=== PATIENT | male | born 1975 | race Caucasian/White ===

== ENCOUNTER 2024-06-25 12:38 | Emergency (ER) | payer BC ==
[~2024-06-25] VITALS: Ht 190.5 cm; Wt 108.9 kg
[2024-06-25] MEDS: IV NORMAL SALINE 1000 ML BAG IV ONE (13:17)
[2024-06-25] MEDS ORDERED: METOCLOPRAMIDE HCL 10 MG/2 ML VIAL ONE (13:22)
[2024-06-25] MEDS ORDERED: KETOROLAC TROMETHAMINE 30 MG INJ ONE (13:22)
[2024-06-25 13:38] LABS: BASOPHILS # (AUTO) 0.1 K/UL (0.0-0.2); BASOPHILS % (AUTO) 1.3 % (0.0-2.0); EOSINOPHILS % (AUTO) 0.5 % (0.0-7.0); HEMATOCRIT 43.7 % (36.7-47.1); HEMOGLOBIN 14.9 g/dL (12.5-16.3); LYMPHOCYTES # (AUTO) 1.1 K/uL (0.8-4.8); LYMPHOCYTES % (AUTO) 14.8 % (20.5-51.5); MEAN CORPUSCULAR HEMOGLOBIN 30.9 uug (23.8-33.4); MEAN CORPUSCULAR HGB CONC 34 g/dL (32.5-36.3); MEAN CORPUSCULAR VOLUME 90.6 fL (73.0-96.2); MONOCYTES # (AUTO) 0.7 K/uL (0.1-1.30); MONOCYTES % (AUTO) 9.8 % (0.0-11.0); NEUTROPHILS # (AUTO) 5.6 K/uL (1.8-8.9); NEUTROPHILS % (AUTO) 73.6 % (38.5-71.5); PLATELET COUNT (AUTO) 276 K/uL (152-348); RED BLOOD CELL COUNT(AUTO) 4.82 MIL/uL (4.06-5.63); RED CELL DISTRIBUTION WIDTH 14.2 % (12.1-16.2); WHITE BLOOD COUNT (AUTO) 7.6 K/uL (3.6-10.2)
[2024-06-25 13:42] LABS: CALCIUM 8.3 mg/dL (8.5-10.1); CREATININE 1.1 mg/dL (0.6-1.3); POTASSIUM 3.8 mmol/L (3.5-5.1)
[2024-06-25] MEDS: METOCLOPRAMIDE HCL 10 MG/2 ML VIAL IV ONE (13:56)
[2024-06-25] MEDS: KETOROLAC TROMETHAMINE 30 MG INJ IVP ONE (14:00)
[2024-06-25] MEDS ORDERED: MORPHINE SULFATE 4 MG/1 ML DISP.SYRIN IV ONE (14:30)
[2024-06-25] MEDS ORDERED: MORPHINE SULFATE 4 MG/1 ML DISP.SYRIN ONE (14:49)
[2024-06-25] MEDS: MORPHINE SULFATE 4 MG/1 ML DISP.SYRIN IV ONE (15:03)
[2024-06-25] MEDS ORDERED: HYDR-3980 PO (15:06)
[2024-06-25 16:09] VITALS: BP 122/74; O2SAT 97
== END 2024-06-25 15:40 | disposition home or self-care (01) ==
LOC: ER 12:38
DX: G44.209 Tension-type headache, unspecified, not intractable (principal); F17.210 Nicotine dependence, cigarettes, uncomplicated; Z88.1 Allergy status to other antibiotic agents; Z88.2 Allergy status to sulfonamides; Z20.822 Contact with and (suspected) exposure to COVID-19
CPT/HCPCS: 36415; 70450; 85025; A4606; A4663; J1885; J2270; J2765; J7040